=== PATIENT | female | born 1970 | race African-American/Black ===

== ENCOUNTER 2023-05-02 19:24 | Emergency (ER) | payer MEDICAID, OTHER ==
[~2023-05-02] VITALS: Ht 165.1 cm; Wt 57.1 kg
[2023-05-02 19:32] VITALS: O2SAT 98
[2023-05-02] MEDS ORDERED: KETOROLAC 30MG/ML VIAL IM ONE (20:00)
[2023-05-02] MEDS ORDERED: KETOROLAC 30MG/ML VIAL IM NR (21:45)
[2023-05-02 22:05] VITALS: BP 128/79
[2023-05-02] MEDS ORDERED: CYCL10TA21 MT (23:47)
[2023-05-02] MEDS ORDERED: LIDO700A15 TP (23:47)
[2023-05-02] MEDS ORDERED: NAPR-1176 MT (23:47)
[2023-05-03 00:13] VITALS: PULSE 84; RESP 16; TEMP 98.6
== END 2023-05-03 00:14 | disposition home or self-care (01) ==
LOC: ER 22:02
DX: M47.812 Spondylosis without myelopathy or radiculopathy, cervical region (principal)
CPT/HCPCS: 81025; 72125; 96372; 99285; J1885; Z7610

== ENCOUNTER 2023-10-11 13:09 | Emergency (ER) | payer OTHER ==
[~2023-10-11] VITALS: Ht 165.1 cm; Wt 57.0 kg
[~2023-10-11 13:09] MED LIST: CYCL10TA21 MT; LIDO700A15 TP; NAPR-1176 MT
[2023-10-11 13:22] VITALS: O2SAT 99
[2023-10-11] MEDS ORDERED: NAPR-1176 MT (15:37)
[2023-10-11] MEDS ORDERED: LIDO700A15 TP (15:37)
[2023-10-11] MEDS ORDERED: CYCL10TA21 MT (15:37)
[2023-10-11] MEDS: HYDROCODONE/ACETAMINOPHEN 5/325MG TABLET PO ONE (15:43)
[2023-10-11] MEDS: KETOROLAC 30MG/ML VIAL IM ONE (15:43)
[2023-10-11 16:43] VITALS: BP 132/85; PULSE 79; RESP 18; TEMP 98.7
== END 2023-10-11 16:44 | disposition home or self-care (01) ==
LOC: ER 13:09
DX: M54.50 Low back pain, unspecified (principal)
CPT/HCPCS: 99283; 81025; 96372; J1885

== ENCOUNTER 2024-07-25 08:24 | Emergency (ER) | payer OTHER ==
[~2024-07-25] VITALS: Ht 165.1 cm; Wt 54.0 kg
[2024-07-25 08:29] VITALS: O2SAT 99
[2024-07-25 09:16] LABS: BASOPHILS % 0.3 % (0.0-2.0); DIFFERENTIAL COMMENT 0; EOSINOPHILS % 0.3 % (0.0-5.0); HEMATOCRIT. 45.2 % (36.0-48.0); HEMOGLOBIN. 14.8 g/dL (12.0-16.0); LYMPHOCYTES % 14.2 % (20.0-50.0); MEAN CORPUSCULAR HEMOGLOBIN 30.3 pg (28.0-32.0); MEAN CORPUSCULAR HGB CONC 32.8 g/dL (31.0-37.0); MEAN CORPUSCULAR VOLUME 92.6 fL (81.0-99.0); MEAN PLATELET VOLUME 9.1 fl (7.4-10.4); MONOCYTES % 6.4 % (2.0-8.0); NEUTROPHILS % 78.8 % (40.0-76.0); PLATELET 138 x1000/uL (130-400); RED BLOOD CELL COUNT 4.89 mill/uL (4.2-5.4); RED CELL DISTRIBUTION WIDTH 14.2 % (11.6-14.6); WHITE BLOOD COUNT 4.7 x1000/uL (4.5-11.0)
[2024-07-25] MEDS: ACETAMINOPHEN 325MG TABLET PO ONE (09:23)
[2024-07-25] MEDS: ONDANSETRON 4MG ODT PO ONE (09:23)
[2024-07-25 10:02] LABS: CALCIUM 9.3 mg/dL (8.7-10.4); CARBON DIOXIDE 34 mEq/L (21-32); CHLORIDE 98 mEq/L (98-107); SODIUM 137 mEq/L (136-145)
[2024-07-25 10:07] LABS: GLUCOSE 107 mg/dL (70-105)
[2024-07-25 10:08] LABS: UREA NITROGEN BLOOD 12 mg/dL (9-23)
[2024-07-25 10:09] LABS: ALANINE AMINOTRANSFERASE 32 IU/L (10-49); ALBUMIN 4.9 g/dL (3.2-4.8); ASPARTATE AMINOTRANSFERASE 57 IU/L (<34)
[2024-07-25 10:10] LABS: BILIRUBIN TOTAL 0.4 mg/dL (0.1-1.0)
[2024-07-25 10:34] LABS: CLARITY URINE CLOUDY (CLEAR); COLOR URINE DARK YELLOW (YELLOW); GLUCOSE URINE NEGATIVE (NEGATIVE); KETONES URINE TRACE (NEGATIVE); LEUKOCYTE ESTERASE URINE NEGATIVE (NEGATIVE); NITRITE URINE NEGATIVE (NEGATIVE); OCCULT BLOOD URINE 1+ (NEGATIVE); PH URINE 5.5 (4.5-8.0); PROTEIN URINE 1+ (NEGATIVE); SPECIFIC GRAVITY URINE 1.026 (1.005-1.030)
[2024-07-25] MEDS ORDERED: ONDA-239 PO (10:37)
[2024-07-25] MEDS ORDERED: IBUP-2029 MT (10:37)
[2024-07-25 10:49] LABS: BACTERIA URINE 2+; HYALINE CASTS URINE 0-5 /lpf; SQUAMOUS EPITHELIAL CELL URINE 3+ /lpf (RARE/1+); YEAST URINE NONE SEEN
[2024-07-25] MEDS: POTASSIUM CHLORIDE 20MEQ TABLET SR PO ONE (11:27)
[2024-07-25 11:28] VITALS: BP 122/63; PULSE 84; RESP 18; TEMP 37.11408; O2SAT 99
== END 2024-07-25 12:28 | disposition home or self-care (01) ==
LOC: ER 08:24
DX: A08.4 Viral intestinal infection, unspecified (principal); E87.6 Hypokalemia; Z79.1 Long term (current) use of non-steroidal anti-inflammatories (NSAID); Z20.822 Contact with and (suspected) exposure to COVID-19
CPT/HCPCS: 99284; 87426; 80053; 81003; 81025; 85025; 36415; Q0162